=== PATIENT | female | born 1980 | race Asian ===

== ENCOUNTER 2024-09-24 16:42 | Emergency (ER) | payer BC, SELFPAY ==
[2024-09-24 16:48] VITALS: BP 143/87
[2024-09-24 17:08] VITALS: BMI 22.0
--- NOTE | 2024-09-24 18:09 | ED.GENMED ---
History of Present Illness
General
Chief Complaint: DVT/Possible Blood Clot
Time Seen by Provider: 09/24/24 17:11
History of Present Illness
History of Present Illness:
43-year-old female presents to the emergency department for evaluation of right low back pain rating to the right gluteal region and down to the calf beginning yesterday. She flew back from [facility] earlier in the week and is concerned about a DVT.
Denies swelling. Denies any paresthesias. No fevers or chills. No meds taken for symptoms
Past History
Past History
ED Past Medical History: Other (Kidney stones, thyroiditis)
ED Past Surgical History: Urological (Lithotripsy)
Social History
Tobacco: Non-smoker
Alcohol: None
Personal:
Living: with family
Employment: Employed
Family History
Family History: Other (Noncontributory)
Review of Systems
Review of Systems
Allergies reviewed?: Yes
All Other Systems: ROS reviewed and negative except as documented in HPI and ROS
Phy Exam
Physical Exam
Physical Exam:
GEN: Well appearing, NAD, WDWN
HEENT: Oral mucosa moist, no scleral icterus
Cardiac: Regular rate
Lung: No respiratory distress, no tachypnea
MSK: Right hip range of motion normal, pain elicited throughout, no RLE edema
Skin: Good color, no pallor or jaundice, no rashes
Neuro: AO x3, moves all extremities freely
Psych: Calm, cooperative
Course
Orders/Labs/Results
Orders:
Orders
09/24/24 16:51
Periph Venous Lwr Ext Rt US [US Periph Venous LOWER Ext RT] Urgent
Comment:
Reason For Exam: right calf pain/numbness/dvt rule out
Vital Signs
Initial and Last Documented VS:
Initial Vital Signs
Temp Pulse Resp BP Pulse Ox
98.2 F 65 18 143/87 97
09/24/24 16:48 09/24/24 16:48 09/24/24 16:48 09/24/24 16:48 09/24/24 16:48
Last Documented Vital Signs
Temp Pulse Resp BP Pulse Ox
98.2 F 65 18 143/87 97
09/24/24 16:48 09/24/24 16:48 09/24/24 16:48 09/24/24 16:48 09/24/24 18:12
MDM/Problems Addressed
MDM/Problems Addressed:
DVT study is reassuring, likely lumbar radiculopathy, will recommend NSAIDs and PCP follow-up
*Pulse Oximetry
SaO2: 97
Oxygen Mode of Delivery: Room air
Patient hypoxic: no
*Critical Care Note
Total Time (30-74mins, 75-104mins- exclusive of procedures): Not Applicable
ED Attending Note
-
Portions of this chart may have been created with voice recognition software.� Occasional wrong word or��sound alike� substitutions may have occurred due to the inherent limitations of voice recognition software.
Discharge Plan
Departure
Patient Disposition: Home (Routine Discharge)
Date of Disposition: 09/24/24
Time of Disposition: 18:13
Patient with high blood pressure during this ER visit?: No
Discharge Problem:
Lumbar radiculopathy, acute
Instructions: Radiculopathy of the neck and back (including sciatica) - Discharge instruc
Prescriptions:
New
diclofenac sodium 75 mg tablet,delayed release (DR/EC)
75 mg PO BID Qty: 20 0RF
No Action
Multivitamins Tablet
1 tab PO DAILY
nitrofurantoin monohyd/m-cryst 100 MG capsule
100 mg PO BID 5 Days 0RF
ibuprofen 600 MG tablet
600 mg PO Q8HPRN PRN (Reason: pain) Qty: 30 0RF
ondansetron 4 MG tablet,disintegrating
4 mg PO QIDPRN PRN (Reason: NAUSEA) Qty: 12 0RF
Referrals:
Yunier Kennedy MD [Family Provider, Internal Medicine]
Interventions
Interventions:
*Risk Screen - Suicide Last Done: 09/24/24 16:48
*General Assessment Last Done: 09/24/24 17:08
*Neglect/Abuse Screening Last Done: 09/24/24 16:48
*ED- Fall Risk Assessment Last Done: 09/24/24 17:08
*ED COVID-19 Vaccine History Last Done: 09/24/24 17:08
*Nursing Disposition Last Done: 09/24/24 18:26
ED- Cardiac Assessment Last Done: 09/24/24 17:08
ED- Pulmonary Assessment Last Done: 09/24/24 17:08
ED-Peripheral Vascular Assessment Last Done: 09/24/24 17:08
Discharge Date and Time
Discharge Date/Time: 09/24/24 18:27
Print Language: CYMRAES
== END 2024-09-24 18:27 | disposition home or self-care (01) ==
LOC: EMR 16:42
PROVIDERS: EMERGENCY PHYSICIAN Emergency Medicine; FAMILY PHYSICIAN Internal Medicine
DX: M54.16 Radiculopathy, lumbar region (principal); Z87.442 Personal history of urinary calculi
CPT/HCPCS: 99284; 93971